=== PATIENT | male | born 1935 | race Caucasian/White ===

== ENCOUNTER 2022-09-05 14:04 | Inpatient (IN) ==
[2022-09-05 15:48] LABS: Hematocrit 40 % (42-52); Hemoglobin 13.5 g/dL (14.0-18.0); Mean Corpuscular HGB Conc 34 g/dL (31-36); Mean Corpuscular Hemoglobin 33 pg (27-31); Mean Corpuscular Volume 96 fL (80-94); Mean Platelet Volume 8.9 fL (7.4-10.4); Platelet Count 175 10^3/uL (150-450); Red Blood Count 4.14 10^6 /uL (4.18-5.48); Red Cell Distribution Width 13 % (10-15); White Blood Count 13.8 10^3/uL (3.5-10.8)
[2022-09-05 15:53] LABS: INR 2.89 (0.89-1.11)
[2022-09-05 16:12] LABS: High Sens Troponin Baseline 14 pg/mL (<20)
[2022-09-05] MEDS ORDERED: fentaNYL 100 mcg/2 ml 50 MCG/ML VIAL IV SLOW PU ONE (16:20)
[2022-09-05 16:22] LABS: ALT 21 U/L (7-52); Albumin 4.2 g/dL (3.2-5.2); Albumin/Globulin Ratio 1.6 (1-3); Alkaline Phosphatase 55 U/L (35-149); Blood Urea Nitrogen 30 mg/dL (6-24); CO2 Carbon Dioxide 23 mmol/L (22-32); Calcium 8.6 mg/dL (8.6-10.3); Chloride 105 mmol/L (101-111); Globulin 2.7 g/dL (2-4); Glucose 120 mg/dL (70-100); Sodium 136 mmol/L (135-145); Total Protein 6.9 g/dL (6.4-8.9); eGFR CKD-EPI 71.1 (>60)
[2022-09-05 16:23] LABS: Anion Gap 8 mmol/L (2-11)
[2022-09-05] MEDS ORDERED: Iohexol 350 (CONTRAST) 500 ML MDV IV ONE (16:27)
[2022-09-05 16:42] LABS: ABS Lymphocytes 0.5 10^3/ul (1.0-4.8); ABS Monocytes 0.6 10^3/ul (0-0.8); ABS Neutrophils 12.6 10^3/ul (1.5-7.7); Lymphocyte % 3.9 %
[2022-09-05 17:42] LABS: High Sensitivity Troponin 1 Hr 19 pg/mL (<20)
[2022-09-05] MEDS ORDERED: Lactated Ringers 1000 ml BAG 1,000 ML IV ONE (20:03)
[2022-09-05] MEDS ORDERED: Morphine 2 MG/ML SYRINGE IV PRN (20:03)
[2022-09-05 20:12] LABS: Potassium Redraw 4.2 mmol/L (3.5-5.0)
[2022-09-05 20:23] LABS: Creatine Kinase 93 U/L (10-223)
[2022-09-05] MEDS: Morphine 2 MG/ML SYRINGE IV PRN ×2 (20:23→22:49)
[2022-09-05] MEDS ORDERED: Phytonadione IV (Adult) 10 MG in NS 0.9% 50 ML 50 ML IV ONE (22:15)
[2022-09-06] MEDS: Morphine 2 MG/ML SYRINGE IV PRN ×5 (02:30→23:58)
[2022-09-06 06:32] LABS: ABS Lymphocytes 1.2 10^3/ul (1.0-4.8); ABS Monocytes 0.5 10^3/ul (0-0.8); ABS Neutrophils 8.5 10^3/ul (1.5-7.7); Eosinophil % 0.1 %; Hematocrit 40 % (42-52); Hemoglobin 13.4 g/dL (14.0-18.0); Lymphocyte % 11.6 %; Mean Corpuscular HGB Conc 34 g/dL (31-36); Mean Corpuscular Hemoglobin 33 pg (27-31); Mean Corpuscular Volume 97 fL (80-94); Mean Platelet Volume 8.9 fL (7.4-10.4); Platelet Count 158 10^3/uL (150-450); Red Blood Count 4.13 10^6 /uL (4.18-5.48); Red Cell Distribution Width 13 % (10-15); White Blood Count 10.3 10^3/uL (3.5-10.8)
[2022-09-06 06:35] LABS: INR 1.96 (0.89-1.11)
[2022-09-06 06:59] LABS: Calcium 8.5 mg/dL (8.6-10.3); Potassium 4.1 mmol/L (3.5-5.0); eGFR CKD-EPI 77.5 (>60)
[2022-09-06] MEDS: Enoxaparin 40 MG/0.4 ML SYR SUBCUT SCH (10:52)
[2022-09-07 06:17] LABS: Hematocrit 40 % (42-52); Hemoglobin 13.5 g/dL (14.0-18.0); Mean Corpuscular HGB Conc 33 g/dL (31-36); Mean Corpuscular Hemoglobin 32 pg (27-31); Mean Corpuscular Volume 97 fL (80-94); Mean Platelet Volume 8.8 fL (7.4-10.4); Platelet Count 151 10^3/uL (150-450); Red Blood Count 4.16 10^6 /uL (4.18-5.48); Red Cell Distribution Width 13 % (10-15); White Blood Count 8.2 10^3/uL (3.5-10.8)
[2022-09-07 06:21] LABS: INR 1.22 (0.89-1.11)
[2022-09-07 06:51] LABS: Calcium 8.6 mg/dL (8.6-10.3); Potassium 4.6 mmol/L (3.5-5.0); eGFR CKD-EPI 75.6 (>60)
[2022-09-07] MEDS: Morphine 2 MG/ML SYRINGE IV PRN (07:32)
[2022-09-07] MEDS: Enoxaparin 40 MG/0.4 ML SYR SUBCUT SCH (11:38)
[2022-09-07] MEDS: Senna TAB 8.6 mg TAB PO SCH (20:55)
[2022-09-07] MEDS: Polyethylene Glycol 3350 17 GM PACKET PO SCH (20:55)
[2022-09-08 07:00] LABS: Hematocrit 41 % (42-52); Hemoglobin 13.8 g/dL (14.0-18.0); Mean Corpuscular HGB Conc 34 g/dL (31-36); Mean Corpuscular Hemoglobin 33 pg (27-31); Mean Corpuscular Volume 96 fL (80-94); Mean Platelet Volume 8.7 fL (7.4-10.4); Platelet Count 145 10^3/uL (150-450); Red Blood Count 4.25 10^6 /uL (4.18-5.48); Red Cell Distribution Width 13 % (10-15); White Blood Count 6.5 10^3/uL (3.5-10.8)
[2022-09-08 07:02] LABS: INR 1.17 (0.89-1.11)
[2022-09-08 07:19] LABS: Calcium 8.7 mg/dL (8.6-10.3); Potassium 3.7 mmol/L (3.5-5.0); eGFR CKD-EPI 83.4 (>60)
[2022-09-08] MEDS: Polyethylene Glycol 3350 17 GM PACKET PO SCH (08:44)
[2022-09-08 14:22] LABS: INR 1.18 (0.89-1.11)
[2022-09-08] MEDS ORDERED: ceFAZolin 2 GM PREMIX 2 GM/50 ML BAG ONE (15:44)
[2022-09-08] MEDS ORDERED: Enoxaparin 80 MG/0.8 ML SYR SUBCUT SCH ×2 (16:00→22:00)
[2022-09-08] MEDS ORDERED: Warfarin per PHARMACY **NOTE FOLLOW UP SCH (16:00)
[2022-09-08] MEDS ORDERED: fentaNYL 100 mcg/2 ml 50 MCG/ML VIAL ONE (16:14)
[2022-09-08] MEDS ORDERED: Bupivacaine 0.25% SDV 30 ML ONE (16:32)
[2022-09-08] MEDS ORDERED: Bupivacaine 0.5% SDV PF 30ML VIAL ONE (16:32)
[2022-09-08] MEDS ORDERED: Famotidine IV 10 MG/ML 2 ml VIAL (20 mg) ONE (16:33)
[2022-09-08] MEDS ORDERED: Desflurane 240 ML INH ONE (18:08)
[2022-09-08] MEDS ORDERED: Ondansetron 4 mg VIAL 2 MG/ML 2 ml VIAL IV PRN (19:58)
[2022-09-08] MEDS ORDERED: HYDROmorphone 1 MG/1 ML SYRINGE IV PRN (19:58)
[2022-09-08] MEDS ORDERED: Naloxone 0.4 mg VIAL 0.4 mg/ml 1 ml VIAL IV PRN (19:58)
[2022-09-08] MEDS ORDERED: Acetaminophen IV 1 GM/100ML 1,000 MG/100 ML BAG IV ONE (19:58)
[2022-09-08] MEDS ORDERED: fentaNYL 100 mcg/2 ml 50 MCG/ML VIAL IV PRN (19:58)
[2022-09-08] MEDS ORDERED: NS 0.9% 1000 ml BAG 1,000 ML IV SCH (23:00)
[2022-09-08] MEDS: Senna TAB 8.6 mg TAB PO SCH (23:44)
[2022-09-09] MEDS: ceFAZolin 1 GM in Dextrose 1 GM/50 ML BAG IVPB SCH ×3 (01:47→16:03)
[2022-09-09 06:53] LABS: INR 1.19 (0.89-1.11)
[2022-09-09 06:54] LABS: Hematocrit 37 % (42-52); Hemoglobin 12.5 g/dL (14.0-18.0); Mean Corpuscular HGB Conc 34 g/dL (31-36); Mean Corpuscular Hemoglobin 33 pg (27-31); Mean Corpuscular Volume 96 fL (80-94); Mean Platelet Volume 9.1 fL (7.4-10.4); Platelet Count 146 10^3/uL (150-450); Red Blood Count 3.83 10^6 /uL (4.18-5.48); Red Cell Distribution Width 13 % (10-15); White Blood Count 8.2 10^3/uL (3.5-10.8)
[2022-09-09 06:58] LABS: Calcium 7.9 mg/dL (8.6-10.3); Magnesium 1.8 mg/dL (1.9-2.7); Potassium 3.8 mmol/L (3.5-5.0); eGFR CKD-EPI 79.5 (>60)
[2022-09-09] MEDS: Polyethylene Glycol 3350 17 GM PACKET PO SCH ×2 (09:39→15:58)
[2022-09-09] MEDS: Enoxaparin 80 MG/0.8 ML SYR SUBCUT SCH (10:57)
[2022-09-09] MEDS: Senna TAB 8.6 mg TAB PO SCH ×3 (15:58→22:00)
[2022-09-09] MEDS ORDERED: Magnesium Sulfate 2 gm BAG 2 GM/50 ML BAG IVPB ONE (17:38)
[2022-09-10] MEDS: Enoxaparin 80 MG/0.8 ML SYR SUBCUT SCH ×3 (00:19→23:30)
[2022-09-10 06:34] LABS: Hematocrit 33 % (42-52); Hemoglobin 11.2 g/dL (14.0-18.0); Mean Platelet Volume 8.6 fL (7.4-10.4); Platelet Count 135 10^3/uL (150-450)
[2022-09-10 06:39] LABS: INR 1.58 (0.89-1.11)
[2022-09-10] MEDS: Senna TAB 8.6 mg TAB PO SCH ×3 (10:14→23:30)
[2022-09-10] MEDS: Polyethylene Glycol 3350 17 GM PACKET PO SCH (10:15)
[2022-09-10] MEDS: Warfarin DAILY REMINDER **NOTE FOLLOW UP SCH (20:18)
[2022-09-11 06:05] LABS: Hematocrit 30 % (42-52); Platelet Count 157 10^3/uL (150-450)
[2022-09-11 06:16] LABS: INR 1.45 (0.89-1.11)
[2022-09-11] MEDS: Senna TAB 8.6 mg TAB PO SCH ×3 (09:25→20:53)
[2022-09-11] MEDS: Polyethylene Glycol 3350 17 GM PACKET PO SCH (09:26)
[2022-09-11] MEDS ORDERED: Lactated Ringers 1000 ml BAG 1,000 ML IV ONE (12:26)
[2022-09-11] MEDS: Enoxaparin 80 MG/0.8 ML SYR SUBCUT SCH (13:10)
[2022-09-11] MEDS: Warfarin DAILY REMINDER **NOTE FOLLOW UP SCH (19:35)
[2022-09-12] MEDS: Enoxaparin 80 MG/0.8 ML SYR SUBCUT SCH ×2 (00:01→11:19)
[2022-09-12 06:14] LABS: Hematocrit 24 % (42-52); Hemoglobin 8.2 g/dL (14.0-18.0); Mean Platelet Volume 9.1 fL (7.4-10.4); Platelet Count 162 10^3/uL (150-450)
[2022-09-12 06:18] LABS: INR 1.41 (0.89-1.11)
[2022-09-12] MEDS ORDERED: Senna TAB 8.6 mg TAB PO PRN (10:13)
[2022-09-12] MEDS: Polyethylene Glycol 3350 17 GM PACKET PO SCH (11:14)
[2022-09-12] MEDS: Senna TAB 8.6 mg TAB PO SCH (11:14)
[2022-09-12 16:43] LABS: Hematocrit 22 % (42-52); Hemoglobin 7.5 g/dL (14.0-18.0)
[2022-09-12] MEDS: Warfarin DAILY REMINDER **NOTE FOLLOW UP SCH (17:29)
[2022-09-12 22:50] LABS: Hematocrit 23 % (42-52); Hemoglobin 7.2 g/dL (14.0-18.0)
[2022-09-13 07:06] LABS: INR 1.84 (0.89-1.11)
[2022-09-13 07:22] LABS: ABS Eosinophils 0.1 10^3/ul (0-0.6); ABS Lymphocytes 1.5 10^3/ul (1.0-4.8); ABS Monocytes 0.6 10^3/ul (0-0.8); ABS Neutrophils 3.5 10^3/ul (1.5-7.7); Eosinophil % 2.1 %; Hematocrit 23 % (42-52); Hemoglobin 7.7 g/dL (14.0-18.0); Lymphocyte % 25.4 %; Mean Corpuscular HGB Conc 33 g/dL (31-36); Mean Corpuscular Hemoglobin 32 pg (27-31); Mean Corpuscular Volume 98 fL (80-94); Mean Platelet Volume 8.4 fL (7.4-10.4); Nucleated Red Blood Cells % 0.1; Platelet Count 187 10^3/uL (150-450); Red Blood Count 2.38 10^6 /uL (4.18-5.48); Red Cell Distribution Width 13 % (10-15); White Blood Count 5.8 10^3/uL (3.5-10.8)
[2022-09-13 08:39] LABS: Calcium 7.8 mg/dL (8.6-10.3); Potassium 3.7 mmol/L (3.5-5.0); eGFR CKD-EPI 78.5 (>60)
[2022-09-13] MEDS ORDERED: Potassium Chlor 20 meq TAB.ER PO ONE (09:28)
[2022-09-13] MEDS ORDERED: Magnesium Sulfate 2 gm BAG 2 GM/50 ML BAG IVPB ONE (09:29)
[2022-09-13] MEDS: Polyethylene Glycol 3350 17 GM PACKET PO SCH (09:57)
[2022-09-13 11:37] VITALS: BP 94/58
== END 2022-09-13 11:56 | DRG 522 ==
LOC: ED 14:04 → SUATTDRO 19:27 → EDHOLD 19:27 → SSU 09-06 01:45
PROVIDERS: ADMIT Student in an Organized Health Care Education/Training Program; ATTEND Hospitalist

== ENCOUNTER 2022-09-13 12:28 | Inpatient (IN) ==
[2022-09-13] MEDS ORDERED: Senna TAB 8.6 mg TAB PO PRN (12:42)
[2022-09-13] MEDS ORDERED: Polyethylene Glycol 3350 17 GM PACKET PO PRN (13:00)
[2022-09-13] MEDS: Enoxaparin 60 MG/0.6 ML SYR SUBCUT SCH (21:25)
[2022-09-14 06:59] LABS: INR 2.48 (0.89-1.11)
[2022-09-14] MEDS ORDERED: Influenza vaccine *QUAD* *2022-23* 0.5 ML SYRINGE IM ONE (08:00)
[2022-09-14] MEDS: Enoxaparin 60 MG/0.6 ML SYR SUBCUT SCH (09:28)
[2022-09-15 06:57] LABS: ABS Eosinophils 0.2 10^3/ul (0-0.6); ABS Lymphocytes 1.6 10^3/ul (1.0-4.8); ABS Monocytes 0.8 10^3/ul (0-0.8); ABS Neutrophils 5.6 10^3/ul (1.5-7.7); Hematocrit 23 % (42-52); Hemoglobin 7.5 g/dL (14.0-18.0); Lymphocyte % 19.1 %; Mean Corpuscular HGB Conc 33 g/dL (31-36); Mean Corpuscular Hemoglobin 33 pg (27-31); Mean Corpuscular Volume 98 fL (80-94); Mean Platelet Volume 8.2 fL (7.4-10.4); Nucleated Red Blood Cells % 0.2; Platelet Count 279 10^3/uL (150-450); Red Cell Distribution Width 13 % (10-15); White Blood Count 8.2 10^3/uL (3.5-10.8)
[2022-09-15 06:59] LABS: INR 2.82 (0.89-1.11)
[2022-09-15 07:29] LABS: Albumin 2.8 g/dL (3.2-5.2); Albumin/Globulin Ratio 1.2 (1-3); Calcium 7.9 mg/dL (8.6-10.3); Globulin 2.4 g/dL (2-4); Potassium 4.3 mmol/L (3.5-5.0); Total Bilirubin 1.2 mg/dL (0.2-1.0); Total Protein 5.2 g/dL (6.4-8.9); eGFR CKD-EPI 85.6 (>60)
[2022-09-16] MEDS: HYDROcodone/ACETAMIN 5/325 mg TAB PO PRN (13:46)
[2022-09-17 06:29] LABS: Hematocrit 23 % (42-52); Hemoglobin 7.8 g/dL (14.0-18.0); Mean Corpuscular HGB Conc 33 g/dL (31-36); Mean Corpuscular Hemoglobin 33 pg (27-31); Mean Corpuscular Volume 99 fL (80-94); Mean Platelet Volume 7.7 fL (7.4-10.4); Platelet Count 346 10^3/uL (150-450); Red Blood Count 2.36 10^6 /uL (4.18-5.48); Red Cell Distribution Width 14 % (10-15); White Blood Count 8.1 10^3/uL (3.5-10.8)
[2022-09-17 06:38] LABS: INR 3.48 (0.89-1.11)
[2022-09-17] MEDS: HYDROcodone/ACETAMIN 5/325 mg TAB PO PRN (08:02)
[2022-09-17 08:22] LABS: ABS Eosinophils 0.2 10^3/ul (0-0.6); ABS Lymphocytes 1.2 10^3/ul (1.0-4.8); ABS Monocytes 0.7 10^3/ul (0-0.8); ABS Neutrophils 5.9 10^3/ul (1.5-7.7); Eosinophil % 1.9 %; Lymphocyte % 15.5 %; Nucleated Red Blood Cells % 0.1
[2022-09-17] MEDS ORDERED: HYDROcodone/ACETAMIN 5/325 mg TAB PO PRN (10:44)
[2022-09-18 07:10] LABS: INR 3.37 (0.89-1.11)
[2022-09-18] MEDS: HYDROcodone/ACETAMIN 5/325 mg TAB PO PRN ×2 (07:22→09:35)
[2022-09-18] MEDS ORDERED: Lidocaine PATCH 5% PATCH TRANSDERM PRN (10:22)
[2022-09-19 07:05] LABS: INR 3.27 (0.89-1.11)
[2022-09-19] MEDS ORDERED: HYDROcodone/ACETAMIN 5/325 mg TAB PO PRN (08:43)
[2022-09-19] MEDS: HYDROcodone/ACETAMIN 5/325 mg TAB PO SCH (12:03)
[2022-09-19] MEDS: Warfarin DAILY REMINDER **NOTE FOLLOW UP SCH (17:05)
[2022-09-20 07:29] LABS: INR 2.93 (0.89-1.11)
[2022-09-20] MEDS: HYDROcodone/ACETAMIN 5/325 mg TAB PO SCH (07:44)
[2022-09-20] MEDS: Warfarin DAILY REMINDER **NOTE FOLLOW UP SCH (16:50)
[2022-09-21] MEDS: HYDROcodone/ACETAMIN 5/325 mg TAB PO PRN (09:01)
[2022-09-21] MEDS: Warfarin DAILY REMINDER **NOTE FOLLOW UP SCH (17:13)
[2022-09-22 06:41] LABS: ABS Basophils 0.1 10^3/ul (0-0.2); ABS Eosinophils 0.2 10^3/ul (0-0.6); ABS Lymphocytes 1.3 10^3/ul (1.0-4.8); ABS Monocytes 0.4 10^3/ul (0-0.8); ABS Neutrophils 4.3 10^3/ul (1.5-7.7); Eosinophil % 3.2 %; Hematocrit 26 % (42-52); Hemoglobin 8.8 g/dL (14.0-18.0); Lymphocyte % 20.5 %; Mean Corpuscular HGB Conc 34 g/dL (31-36); Mean Corpuscular Hemoglobin 33 pg (27-31); Mean Corpuscular Volume 99 fL (80-94); Mean Platelet Volume 7.3 fL (7.4-10.4); Platelet Count 369 10^3/uL (150-450); Red Blood Count 2.63 10^6 /uL (4.18-5.48); Red Cell Distribution Width 16 % (10-15); White Blood Count 6.3 10^3/uL (3.5-10.8)
[2022-09-22 06:48] LABS: INR 2.82 (0.89-1.11)
[2022-09-22] MEDS: HYDROcodone/ACETAMIN 5/325 mg TAB PO PRN (07:14)
[2022-09-22 07:34] LABS: Albumin 3.1 g/dL (3.2-5.2); Albumin/Globulin Ratio 1.2 (1-3); Calcium 8.3 mg/dL (8.6-10.3); Globulin 2.5 g/dL (2-4); Potassium 4.3 mmol/L (3.5-5.0); Total Bilirubin 1.2 mg/dL (0.2-1.0); Total Protein 5.6 g/dL (6.4-8.9); eGFR CKD-EPI 82.5 (>60)
[2022-09-22] MEDS: Warfarin DAILY REMINDER **NOTE FOLLOW UP SCH (16:59)
[2022-09-23] MEDS: HYDROcodone/ACETAMIN 5/325 mg TAB PO PRN (07:22)
[2022-09-23] MEDS: Warfarin DAILY REMINDER **NOTE FOLLOW UP SCH (17:16)
[2022-09-24 05:29] VITALS: BP 150/76
[2022-09-24 06:57] LABS: INR 2.83 (0.89-1.11)
[2022-09-24] MEDS: HYDROcodone/ACETAMIN 5/325 mg TAB PO PRN ×2 (07:20→13:30)
== END 2022-09-24 14:00 | disposition home health service (06) | DRG 560 ==
LOC: PMRU 12:32
PROVIDERS: ADMIT Physical Medicine & Rehabilitation; ATTEND Physical Medicine & Rehabilitation